=== PATIENT | male | born 1950 ===

== ENCOUNTER 2017-10-31 07:57 | Outpatient (CLI) | payer OTHER ==
[~2017-10-31 07:57] MED LIST: B COMPLEX1 TAB PO; CIPRO500 MG PO; COZAAR100 MG PO; CRESTOR5 MG PO; DIOVAN320 MG; LEVSIN0.125 MG PO; NORVASC5 MG; NORVASC5 MG PO; PROTONIX40 MG PO; VITAMIN B-1000 MCG/2 SC; VITAMIN B-121000 MC2 SL; VITAMIN D1000 UNIT
== END 2017-10-31 08:16 | disposition home or self-care (01) ==
LOC: MRI 07:57
DX: M54.2 Cervicalgia (principal); M50.30 Other cervical disc degeneration, unspecified cervical region
CPT/HCPCS: 72141

== ENCOUNTER 2018-01-04 05:34 | Inpatient (IN) | payer OTHER ==
[~2018-01-04] VITALS: Ht 167.6 cm; Wt 75.7 kg
[2018-01-07] MEDS ORDERED: CIPRO500 MG PO (11:19)
[2018-01-07] MEDS ORDERED: PEPCID20 MG PO (11:19)
[2018-01-07] MEDS ORDERED: FLAGYL500MG PO (11:19)
== END 2018-01-07 12:24 | disposition home or self-care (01) | DRG 392 ==
LOC: ER 05:34 → MEDJ 14:39 → MEDI 14:39 → SEC-K 15:59 → MEDI 16:01
PROC: BW25Y0Z Computerized Tomography (CT Scan) of Chest, Abdomen and Pelvis using Other Contrast, Unenhanced and Enhanced (ICD-10-PCS; principal; 2018-01-04)
DX: K57.32 Diverticulitis of large intestine without perforation or abscess without bleeding (principal); I10 Essential (primary) hypertension; D56.8 Other thalassemias

== ENCOUNTER 2019-02-11 14:48 | Outpatient (CLI) | payer OTHER ==
[~2019-02-11 14:48] MED LIST changes: +FLAGYL500MG PO; +PEPCID20 MG PO
== END 2019-02-11 14:50 | disposition home or self-care (01) ==
LOC: RAD 14:48
DX: M25.512 Pain in left shoulder (principal)

== ENCOUNTER 2022-02-20 04:52 | Inpatient (IN) | payer OTHER ==
[~2022-02-20] VITALS: Ht 175.3 cm; Wt 74.8 kg
[2022-02-20] MEDS ORDERED: VAZALORE81 MG PO (05:19)
[2022-02-20] MEDS ORDERED: AVALIDE 300-121 EACH PO (05:19)
[2022-02-20] MEDS ORDERED: SYNTHROID137 MCG PO (05:20)
[2022-02-20] MEDS ORDERED: PEPCID AC20 MG PO (05:20)
[2022-02-20] MEDS ORDERED: MONTELUKAST SODI4 M1 (05:20)
[2022-02-20] MEDS ORDERED: ATORVASTATIN CA10 MG PO (05:21)
[2022-02-20] MEDS ORDERED: KEPPRA1000 MG PO (05:22)
[2022-02-20] MEDS ORDERED: DIVALPROEX SOD500 M1 PO (05:22)
--- NOTE | 2022-02-20 05:27 | NUR ---
SE RECIBE PACIENTE ALERTA Y ORIENTADO X3. REFIERE SENTIRSE CANSADO Y CON MOLESTIA EN EL CUERPO HACE UNOS PUENTE. SE REALIZA EKG Y JACQUELIN DE DXT. SE COLOCA EN RODY DE ESPERA.
[2022-02-20] MEDS ORDERED: B COMPLEX FORM0.4 MG PO (05:39)
[2022-02-20] MEDS ORDERED: LOSARTAN POTAS100 MG PO (05:39)
[2022-02-20] MEDS ORDERED: ROSUVASTATIN CA10 MG PO (05:39)
[2022-02-20] MEDS ORDERED: CARDURA1 MG PO (05:40)
[2022-02-20] MEDS ORDERED: NORVASC5 MG PO (05:40)
[2022-02-20] MEDS ORDERED: B12 ACTIVE1000 MCG PO (05:41)
[2022-02-20] MEDS ORDERED: DICLOFENAC POTA50 MG PO (05:42)
[2022-02-20] MEDS ORDERED: DOXAZOSIN MESYLA2 MG PO (05:42)
--- NOTE | 2022-02-20 06:05 | NUR ---
SE RECIBE PACIENTE ALERTA Y ORIENTADO X3. REFIERE TENER DOLOR ABDOMINAL HACE 2 PUENTE. HX DE DIVERTICULITIS
--- NOTE | 2022-02-20 07:25 | NUR ---
PTE EVALUADO POR EL DR TASHA HAQUE ORDENA EL [place]. MR Alesha CALDERA ORIENTA SOBRE EL TX ORDENADO, LO CUAL REFIERE ENTENDER Y REALIZA PRUEBAS DE LABORATORIO RICHARD ORDEN MEDICA Y SIGUIENDO MEDIDAS ASEPTICAS. MEDICAMENTOS ADMINISTRADOS POR MR Angelica BAUMAN. CT ABD-PELVICO PO NOTIFICADO A PERSONAL DE TURNO.
--- NOTE | 2022-02-20 15:37 | NUR ---
SE RECIBE MASCULINO ALERTA Y ORIENTADO X 3 ESFERAS EN CAMA. PRESENTANDO BUEN PATRON RESPIRATORIO. RECIBIENDO IV'S 0.9NSS BAJANDO A 150ML/HR POR VENOPUNCION AMBERLY DE EDEMA Y ERITEMA EN BRAZO ANTONY. PENDIENTE CONSULTA CON DR.ESTEBAN DENNEY. SE MANTIENE BAJO OBSERVACION.
== END 2022-02-25 19:00 | disposition home or self-care (01) | DRG 392 ==
LOC: ER 04:52 → MEDJ 19:25
PROVIDERS: ADMIT Internal Medicine; ATTEND Internal Medicine
PROC: BW21YZZ Computerized Tomography (CT Scan) of Abdomen and Pelvis using Other Contrast (ICD-10-PCS; principal; 2022-02-20)
DX: K57.32 Diverticulitis of large intestine without perforation or abscess without bleeding (principal); R10.32 Left lower quadrant pain; I10 Essential (primary) hypertension; E78.5 Hyperlipidemia, unspecified; D56.9 Thalassemia, unspecified